=== PATIENT | male | born 1990 | race African-American/Black ===

== ENCOUNTER 2019-08-07 06:59 | Emergency (ER) | payer OTHER ==
[~2019-08-07] VITALS: Ht 162.6 cm; Wt 122.7 kg
[2019-08-07 07:14] VITALS: BP 141/81
--- NOTE | 2019-08-07 07:48 | PHYS DOC ---
Past History Past Medical History: No Pertinent History Past Surgical History: No Surgical History Alcohol Use: None Adult General Chief Complaint Chief Complaint: SORE THROAT HPI HPI 28-year-old male presents with sore throat. He has had a sore throat for 2 days. She is also had an intermittent cough. He is also concerned with how swollen his tonsils look and that is very painful swallow. He has not measured a fever, but has had chills. He denies any difficulty breathing. He has been using Mucinex for congestion, but it is no longer working. He has no other concerns or complaints. Review of Systems Review of Systems Constitutional: Chills[] Eyes: Denies change in visual acuity, redness, or eye pain [] HENT: sore throat [] Respiratory: Cough without shortness of breath [] Cardiovascular: No additional information not addressed in HPI [] GI: Denies abdominal pain, nausea, vomiting, bloody stools or diarrhea [] : Denies dysuria or hematuria [] Musculoskeletal: Denies back pain or joint pain [] Integument: Denies rash or skin lesions [] Neurologic: Denies headache, focal weakness or sensory changes [] Endocrine: Denies polyuria or polydipsia [] All other systems were reviewed and found to be within normal limits, except as documented in this note. Allergies Allergies Allergies Coded Allergies Type Severity Reaction Last Updated Verified No Known Drug Allergies 08/07/19 No Physical Exam Physical Exam Constitutional: Well developed, morbidly obese, well nourished, no acute distres s, non-toxic appearance. [] HENT: Normocephalic, atraumatic, bilateral external ears normal, tonsils are ve ry swollen and touching, minimal exudate.[] Eyes: PERRLA, EOMI, conjunctiva normal, no discharge. [] Neck: Normal range of motion, no tenderness, supple, no stridor. [] Cardiovascular:Heart rate regular rhythm, no murmur [] Lungs & Thorax: Bilateral breath sounds clear to auscultation [] Abdomen: Bowel sounds normal, soft, no tenderness, no masses, no pulsatile masses. [] Skin: Warm, dry, no erythema, no rash. [] Back: No tenderness, no CVA tenderness. [] Extremities: No tenderness, no cyanosis, no clubbing, ROM intact, no edema. [] Neurologic: Alert and oriented X 3, normal motor function, normal sensory function, no focal deficits noted. [] Psychologic: Affect normal, judgement normal, mood normal. [] Current Patient Data Vital Signs Vital Signs Date Time Temp Pulse Resp B/P (MAP) Pulse Ox O2 Delivery O2 Flow Rate FiO2 08/07/19 07:14 99.7 118 22 141/81 (101) 100 Room Air EKG EKG [] Radiology/Procedures Radiology/Procedures [] Course & Med Decision Making Course & Med Decision Making Pertinent Labs and Imaging studies reviewed. (See chart for details) The patient was unable to tolerate strep swab due to gagging. His exam is concerning for strep due to the severity of this tonsil swelling and some exudate. The patient's influenza is negative. I will treat him with 125 Solu- Medrol IM as well as Bicillin injection. He has elected for the Bicillin versus oral pills. He is stable for discharge at this time. [] Dragon Disclaimer Dragon Disclaimer This electronic medical record was generated, in whole or in part, using a voice recognition dictation system. Departure Departure: Impression: Primary Impression: Strep pharyngitis Disposition: HOME, SELF-CARE Condition: STABLE Referrals: NON,STAFF (PCP) Patient Instructions: Sore Throat, [id number] MADELINE FISCHER DO Aug 07, 2019 07:48
[2019-08-07 07:50] LABS: INFLUENZA A PATIENT NEGATIVE (NEGATIVE); INFLUENZA B PATIENT NEGATIVE (NEGATIVE)
[2019-08-07] MEDS ORDERED: PENICILLIN G BENZATHINE LA 1,200,000 UNIT/2 ML DISP.SYRIN. IM ONE (08:00)
[2019-08-07] MEDS ORDERED: methylPREDNISolone SOD SUCC PF 125 MG/2 ML VIAL. IM ONE (08:00)
== END 2019-08-07 08:24 | disposition home or self-care (01) ==
LOC: ER 06:59
DX: J02.0 Streptococcal pharyngitis (principal); B95.0 Streptococcus, group A, as the cause of diseases classified elsewhere
CPT/HCPCS: 87804; 96372; 99284; J0561; J2930